=== PATIENT | female | born 1965 | race Caucasian/White ===

== ENCOUNTER 2019-01-16 13:12 | Emergency (ER) | payer OTHER ==
[2019-01-16 13:21] VITALS: BP 106/66
--- NOTE | 2019-01-16 13:36 | UC ---
Upper Extremity HPI - HPI Summary HPI Summary: 53 yo female presents with left shoulder pain. She tells me that she woke up in the middle of the night and felt her left shoulder was stiff. She went back to sleep and this morning woke up with her pain worse. Thinks she may have slept on it wrong. She has had this in the past, but doesn't remember it being this painful. She also notes some shoulder/upper arm muscle twitching. She has taken naproxen and ibuprofen with mild relief. Heating pad feels better. Pain is worse with raising hand above head. Denies numbness, tingling, or injury to the area. - History of Current Complaint Chief Complaint: UCUpperExtremity Stated Complaint: ARM COMPLAINT Time Seen by Provider: 01/16/19 13:36 Hx Obtained From: Patient Hx Last Menstrual Period: current Onset/Duration: Sudden Onset Severity Initially: Moderate Severity Currently: Moderate Pain Intensity: 8 Pain Scale Used: 0-10 Numeric - Allergies/Home Medications Allergies/Adverse Reactions: Allergies Allergy/AdvReac Type Severity Reaction Status Date / Time No Known Allergies Allergy Verified 01/16/19 13:20 Home Medications: Home Medications Ibuprofen 400 mg PO 01/16/19 [History] Methylcobalamine (NF) [B-12] 1,000 mcg SL DAILY 01/16/19 [History Confirmed ] PMH/Surg Hx/FS Hx/Imm Hx Psychological History: Anxiety, Depression - Surgical History Surgical History: Yes Surgery Procedure, Year, and Place: 2003 - Family History Known Family History: Positive: None - Social History Lives: With Family Alcohol Use: Rare Substance Use Type: None Smoking Status (MU): Never Smoked Tobacco Review of Systems All Other Systems Reviewed And Are Negative: Yes Constitutional: Positive: Negative Skin: Positive: Negative Respiratory: Positive: Negative Cardiovascular: Positive: Negative Neurovascular: Positive: Negative Musculoskeletal: Positive: Other: - Left shoulder pain Neurological: Positive: Negative Psychological: Positive: Negative Physical Exam - Summary Physical Exam Summary: GENERAL: NAD. WDWN. SKIN: No rashes, sores, lesions, or open wounds. CHEST: CTAB. No r/r/w. No accessory muscle use. Breathing comfortably and in no distress. CV: RRR. No m/r/g. Pulses intact radial and ulnar. Cap refill <2seconds MSK: LEFT SHOULDER: TTP over teres major. FROM. Strength 5/5. No edema or obvious bony deformities. Negative apleys, empty can, corona-adam, neer, o naresh, and yergason tests. NEURO: Alert. Sensations intact C4-T1 b/l UEs. PSYCH: Age appropriate behavior. Triage Information Reviewed: Yes Vital Signs: Initial Vital Signs Temp 97.3 F 01/16/19 13:18 Pulse 85 01/16/19 13:18 Resp 18 01/16/19 13:18 BP 106/66 01/16/19 13:18 Pulse Ox 100 01/16/19 13:18 Vital Signs Reviewed: Yes Upper Extremity Course/Dx - Course Course Of Treatment: Suspect muscle spasm. She was given norco 5/325 in the clinic due to her degree of pain. Advised to continue applying heat and practicing gentle ROM. Do not take naproxen and ibuprofen together. Will rx for flexeril. - Differential Dx/Diagnosis Provider Diagnosis: Muscle spasm Discharge - Sign-Out/Discharge Documenting (check all that apply): Patient Departure All imaging exams completed and their final reports reviewed: No Studies - Discharge Plan Condition: Stable Disposition: HOME Prescriptions: Cyclobenzaprine TAB* [Flexeril 10 MG TAB*] 10 mg PO TID PRN #21 tab PRN Reason: Pain Patient Education Materials: Muscle Spasm (ED) Referrals: Jeovany Rubio MD [Primary Care Provider] - Additional Instructions: If you develop a fever, shortness of breath, chest pain, new or worsening symptoms - please call your PCP or go to the ED. 1) Rest and apply heat to the area of pain 2) Do not continue taking naproxen and ibuprofen together as these are related and can cause side effects 3) If your symptoms do not improve - please follow up with your primary doctor - Billing Disposition and Condition Condition: STABLE Disposition: Home
[2019-01-16] MEDS ORDERED: HYDROcodone/ACETAMIN 5-325 MG* 1 TAB PO ONE (13:45)
== END 2019-01-16 13:55 | disposition home or self-care (01) ==
LOC: UCEAST 13:12
DX: M62.838 Other muscle spasm (principal)
CPT/HCPCS: 99212; G0463

== ENCOUNTER → 2019-08-09 11:40 | Day surgery (SDC) | payer OTHER ==
[~2019-08-09 11:40] MED LIST: Acetaminophen TAB* 325 MG ONE; Acetaminophen TAB* 325 MG PO ONE; Buffered Lidocaine 1% SYRIN* 1 ML/SYRINGE INTRADERM ONE; Bupivacaine 0.25% EPI 200,000* 30 ML SDV ONE; Dexamethasone IV* 4 MG/ML 1 ML (4 MG) IV SLOW PU ONE; Dexamethasone IV* 4 MG/ML 1 ML (4 MG) ONE; EPINEPHRINE 1 MG/ML 1 ML VIAL ONE; Famotidine TAB* 20 MG ONE; Famotidine TAB* 20 MG PO ONE; Gabapentin CAP(*) 300 MG ONE; Gabapentin CAP(*) 300 MG PO ONE; Lactated Ringers 1000 ML Bag* 1,000 ML IV SCH; Lidocaine 2% PF* 10 ML AMP ONE; Midazolam* 1 MG/ML 2 ML VIAL (2 MG) ONE; Naloxone* 0.4 MG/ML 1 ML VIAL IV PRN; Ondansetron INJ* 2 MG/ML VIAL IV PRN; PROCHLORPERAZINE INJ 5 MG/ML 2 ML VIAL IV PRN; Propofol* 10 MG/ML 20 ML BTL ONE; ROPIVACAINE 5 MG/ML 30 ML BTL (0.5%) ONE; Rocuronium* 10 MG/ML VIAL ONE; ceFAZolin 2 GM PREMIX in ORs 2 GM/50 ML BAG ONE; celeCOXIB CAP* 200 MG ONE; celeCOXIB CAP* 200 MG PO ONE; fentaNYL* 50 MCG/ML 2 ML VIAL (100 MCG VIAL) IV PRN; fentaNYL* 50 MCG/ML 5 ML VIAL (250 MCG VIAL) ONE; oxyCODONE TAB* 5 MG TAB PO PRN
[2019-08-09 19:36] VITALS: BP 121/77
--- NOTE | 2019-08-10 03:56 | OP ---
DATE OF OPERATION: 08/09/19 - [facility] DATE OF : 69 SURGEON: Carmelo Menchaca MD PRINTING MECHANIST: ALETHA Giron. A physician management assistant was required for the length of the procedure for assistance with patient positioning, instrumentation and closure. ANESTHESIOLOGIST: Dr. Linda Carrion ANESTHESIA: General anesthesia, regional interscalene block anesthesia, local anesthesia including 20 cc of Marcaine 0.25% with epinephrine. PRE-OP DIAGNOSES: 1. Right shoulder rotator cuff tendinitis, possible tear, partial thickness. 2. Right shoulder subacromial bursitis and impingement. 3. Right shoulder AC joint osteoarthritis. 4. Right shoulder possible anterior labrum tear, possible biceps tendinosis or superior labrum tear. 5. Right shoulder possible capsulitis, stiffness. POST-OP DIAGNOSES: 1. Right shoulder rotator cuff tendinitis, partial thickness articular sided supraspinatus low grade tear. 2. Right shoulder subacromial bursitis and impingement. 3. Right shoulder AC joint osteoarthritis. 4. Right shoulder biceps tendinosis. 5. Right shoulder capsulitis with stiffness. OPERATIVE PROCEDURES: 1. Right shoulder manipulation under anesthesia and lysis of adhesions including capsulotomy as well as debridement rotator cuff interval, arthroscopic. 2. Right shoulder arthroscopic rotator cuff tendon repair with Regeneten biologic patch, supraspinatus. 3. Right shoulder arthroscopic subacromial decompression. 4. Right shoulder arthroscopic distal clavicle resection. 5. Right shoulder open proximal biceps tenodesis, subpectoral. ANTIBIOTICS: Ancef 2 g IV. IV FLUIDS: See anesthesia note. SKIN TO SKIN TIME: 82 minutes. SPECIMEN: None. IMPLANTS: [employer] Regeneten biologic patch, size medium x1. Arthrex proximal biceps tenodesis button x1. COMPLICATIONS: None. ESTIMATED BLOOD LOSS: Minimal. 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 The patient has responded insufficiently to nonoperative management and opted for surgery. Discussed risks and potential complications of surgery. Discussed possible treatment of biceps or superior labrum. The patient preferred biceps tenodesis to biceps release. DESCRIPTION OF PROCEDURE: In preoperative holding, the patient signed the written consent. Operative extremity was marked in the preoperative holding. The patient underwent a regional interscalene block in preoperative holding. The patient was taken back to the operating room and placed supine on the operating room table. Sedated and intubated. The patient was converted to a lateral decubitus position. Axillary roll placed. Beanbag hardened. All bony prominences padded. Right shoulder was placed in 13 pounds of longitudinal traction with the appropriate amount of forward flexion and abduction. I next performed a mini time-out. I removed the patient's right shoulder from the longitudinal traction and performed an examination under anesthesia. The patient's passive range of motion was 150 degrees forward flexion, 70 degrees of external, 45 degrees of internal rotation. I then performed a manipulation under anesthesia using appropriate safe technique. There was crackling about the right shoulder. I converted the patient to passive range of motion of 180 degrees of forward flexion, 90 degrees external, and 80 degrees internal rotation. The patient was returned to longitudinal traction. Right shoulder was prepped and draped. Surgical time-out formally was performed. 30 cc of normal saline was infused into the glenohumeral joint from posterior. I then established a posterior glenohumeral joint portal. I cleared some blood out of the glenohumeral joint. Diagnostic arthroscopy commenced. No articular cartilage damage. An anterior glenohumeral joint portal was established under direct visualization. I brought arthroscopic shaver into the joint that helped improve the view. I probed the biceps and superior labrum. There was much hyperemia along the biceps of full intraarticular length. Therefore, I thought, coupling with patient's exam that it was a yeager move to treat the biceps tendon. I brought in arthroscopic scissors and cut the long head of the biceps tendon just off its origin. I debrided the superior labrum, smoothed it out from arthroscopic shaver. I next evaluated the rotator cuff. There was some partial thickness tearing on the under surface of the supraspinatus. I took an arthroscopic shaver and smoothed that out. There was not a significant amount of foot print visible. Difficult to tell how diseased the rotator cuff tendon was in this location. No other rotator cuff tearing visible. I used an arthroscopic shaver to debride a significant amount of rotator cuff interval tissue back to the coracoid process making that very visible. I next visualized from anterior and brought an arthroscopic shaver and from posterior and debrided posterior capsule. I next used the hook tip cautery device to the 5 o'clock position anterior inferiorly. I then used the arthroscopic shaver again. I next returned the arthroscope to the posterior portal and debrided again anteriorly along the anterior capsule in the anterior inferiorly. I was very happy with the capsular release. I placed a spinal needle to jose the area of rotator cuff undersurface tear. I removed all fluid and the instruments from the glenohumeral joint. I next entered the subacromial space from posterior and anterior. There is a significant amount of subacromial bursitis. I made a lateral subacromial portal under direct visualization. I debrided the subacromial bursitis with an arthroscopic shaver. I noted where the spinal needle was placed through the rotator cuff. There is no significant bursal sided tearing or full thickness tear. I probed the rotator cuff in that location. I debrided the undersurface of the acromion with a cautery device. I released the coracoacromial ligament. Used an arthroscopic katheryn to smooth out the undersurface of the acromion specifically removing an anterior curve to the acromion. I next placed a medium Regeneten biologic patch over the supraspinatus. I used PLLA bioabsorbable anchors to hold it in place. It was held in place very stably. I next addressed the AC joint. I debrided about it, bursitic tissue with a cautery device and then moved 8 mm at the distal end of the clavicle with an arthroscopic katheryn. I removed fluid and instruments from subacromial space. I closed skin incisions with [id number] and 12 stitches using nylon 3-0 suture. I took the patient's right upper extremity out of longitudinal traction and converted the patient to a sloppy supine position with regards to the upper body. I made a longitudinal incision and dissected down to the bicipital groove. I placed retractors. I debrided bicipital groove. I placed a Beath pin. Placed 4 stitches in the long head biceps tendon with a FiberLoop suture. I loaded the button, passed the button and flipped it. I tied a knot. I used a free needle to place another knot which was tied. Removed excess biceps and suture. Irrigation. Closure of the subcutaneous tissue with buried simple stitches using Vicryl 3-0 suture. Closure of the subcuticular layer with a running stitch using Monocryl 3-0 suture. Local anesthesia was injected. Mastisol, Steri-Strips, 4x4, Tegaderm. Arthroscopic incisions were dressed with Xeroform, 4x4s, ABD, foam tape. The patient was placed in a sling with an abduction pillow. The patient was awakened, extubated, and transferred to the PACU. DISPOSITION: The patient was given Percocet as needed for pain control and a short course of Keflex for infection prophylaxis. She will start physical therapy immediately according to the Regeneten biologic patch postoperative protocol. She will follow up with me in 10 to 14 days postoperatively. Wound care instructions provided. [id number]/CPS #: [id number] BILL
== END | disposition home or self-care (01) ==
LOC: OR 11:40
PROVIDERS: ATTEND Orthopaedic Surgery
DX: S46.012D Strain of muscle(s) and tendon(s) of the rotator cuff of left shoulder, subsequent encounter (principal); X58.XXXD Exposure to other specified factors, subsequent encounter; Y92.9 Unspecified place or not applicable; M75.51 Bursitis of right shoulder; M75.41 Impingement syndrome of right shoulder; M19.011 Primary osteoarthritis, right shoulder; M75.21 Bicipital tendinitis, right shoulder; M75.01 Adhesive capsulitis of right shoulder; G89.18 Other acute postprocedural pain; Z85.828 Personal history of other malignant neoplasm of skin; D51.0 Vitamin B12 deficiency anemia due to intrinsic factor deficiency
CPT/HCPCS: 81025; A9270-GY; C1713; C1776; J0690; J1100; J2001; J2250; J2704; J2795; J3010